=== PATIENT | female | born 1940 | race Caucasian/White ===

== ENCOUNTER 2016-11-18 12:47 | Observation (INO) | payer MEDICARE ==
[2016-11-18 12:52] VITALS: BP 193/100; PULSE 99; RESP 20; TEMP 97.7; O2SAT 96
[2016-11-18 13:00] VITALS: BP 188/95; PULSE 62; RESP 18; O2SAT 98
[2016-11-18] MEDS ORDERED: SODIUM CHLOR 0.9% 1000 ML INJ 1,000 ML IV SCH ×2 (13:12→18:15)
[2016-11-18] MEDS ORDERED: SODIUM CHLORIDE 0.9% FLUSH 10 ML FLUSH IVF PRN (13:15)
--- NOTE | 2016-11-18 13:16 | PD ---
HPI Chief Complaint: gi bleed Time Seen by Provider: 13:15 Travel History International Travel<30 days: No Contact w/Intl Traveler<30days: No Traveled to known affect area: No History of Present Illness HPI 76-year-old female with history of A. fib, COPD, and chronic back pain presents to the emergency department today for evaluation of mario red bloody bowel movements. Patient states these have been happening since Wednesday which is 3 days ago. BMs have been with some brown stool but a lot of blood. She states she stopped taking her Coumadin when she first noticed it. She was at the pain management today where she receives injections for her back and has Percocet prescribed to her when they advised that she come to the emergency department. She states that her abdomen has been more bloated and larger than usual. States it is mildly painful. She does have a history of bowel perforation with colostomy placement in 2013 and then reversal in 2014. No nausea or vomiting. No urinary symptoms. She has no other symptoms to report at this time. PFSH Past Medical History Cancer: Yes (breast cancer) Cardiovascular Problems: Yes (atrial fibrillation) COPD: Yes Social History Alcohol Use: No Tobacco Use: No Substance Use: No Allergies-Medications (Allergen,Severity, Reaction): Coded Allergies: Compazine (Verified Allergy, Intermediate, anxiety, 11/18/16) Penicillin (Verified Allergy, Intermediate, rash, 11/18/16) Uncoded Allergies: nickel (Adverse Reaction, Unknown, 11/18/16) Reported Meds & Prescriptions Reported Meds & Active Scripts Active Reported Nexium (Esomeprazole DR) 40 Mg Capdr 40 Mg PO DAILY Cymbalta DR (Duloxetine HCl) 30 Mg Capdr 30 Mg PO DAILY Oxycodone-Acetaminophen 10-325 mg Tab 1 Tab PO Q6H PRN Colace (Docusate Sodium) 100 Mg Cap 100 Mg PO DIRECTED Cardizem CD 24 HR (Diltiazem CD 24 HR) 180 Mg Caper 180 Mg PO DAILY Coumadin (Warfarin) 5 Mg Tab 5 Mg PO DAILY Cozaar (Losartan Potassium) 100 Mg Tab 100 Mg PO DAILY Review of Systems Except as stated in HPI: all other systems reviewed are Neg Physical Exam Narrative GENERAL: Well-nourished, pleasant, elderly female patient, lying in bed, in no acute distress SKIN: Warm and dry. HEAD: Atraumatic. Normocephalic. EYES: Pupils equal and round. No scleral icterus. No injection or drainage. ENT: No nasal bleeding or discharge. Mucous membranes pink and moist. NECK: Trachea midline. No JVD. CARDIOVASCULAR: Elevated rate and rhythm. No murmur appreciated. RESPIRATORY: No accessory muscle use. Diminished to auscultation. Breath sounds equal bilaterally. GASTROINTESTINAL: Abdomen rotund, soft, tenderness to palpation in the epigastrium, left upper, and right upper quadrants.. Hepatic and splenic margins not palpable. RECTAL EXAM: External hemorrhoid, slight tenderness upon exam. Stool is brown with what appears to be blood in it MUSCULOSKELETAL: No obvious deformities. No clubbing. No cyanosis. No edema. NEUROLOGICAL: Awake and alert. No obvious cranial nerve deficits. Motor grossly within normal limits. Normal speech. PSYCHIATRIC: Appropriate mood and affect; insight and judgment normal. Data Data Last Documented VS Vital Signs Date Time Temp Pulse Resp B/P Pulse Ox O2 Delivery O2 Flow Rate FiO2 11/18/16 13:40 20 11/18/16 13:40 62 151/63 98 Room Air 11/18/16 12:52 97.7 Orders Complete Blood Count With Diff (11/18/16 13:12) Comprehensive Metabolic Panel (11/18/16 13:12) Prothrombin Time / Inr (Pt) (11/18/16 13:12) Act Partial Throm Time (Ptt) (11/18/16 13:12) Urinalysis - C+S If Indicated (11/18/16 13:12) Type And Screen (11/18/16 13:12) Ecg Monitoring (11/18/16 13:12) Iv Access Insert/Monitor (11/18/16 13:12) Oximetry (11/18/16 13:12) Sodium Chlor 0.9% 1000 Ml Inj (Ns 1000 M (11/18/16 13:12) Sodium Chloride 0.9% Flush (Ns Flush) (11/18/16 13:15) Ct Abd/Pel W Iv Contrast(Rout) (11/18/16 ) Electrocardiogram (11/18/16 ) Chest, Single Ap (11/18/16 ) Iohexol 350 Inj (Omnipaque 350 Inj) (11/18/16 16:41) Admit Order (Ed Use Only) (11/18/16 17:10) Place In Observation (11/18/16 ) Vital Signs (Adult) AILEEN.QSHIFT (11/18/16 17:12) Intake + Output AILEEN.QSHIFT (11/18/16 17:12) Diet Npo (11/19/16 Breakfast) Diet Clear Liquid (11/18/16 Dinner) Sodium Chloride 0.9% Flush (Ns Flush) (11/18/16 21:00) Ondansetron Inj (Zofran Inj) (11/18/16 17:15) Pantoprazole Inj (Protonix Inj) (11/19/16 09:00) Hgb & Hct (11/18/16 19:00) Hgb & Hct (11/19/16 01:00) Hgb & Hct (11/19/16 07:00) Hgb & Hct (11/19/16 13:00) Complete Blood Count With Diff (11/19/16 06:00) Basic Metabolic Panel (Bmp) (11/19/16 06:00) Prothrombin Time / Inr (Pt) (11/19/16 06:00) Consult Gastroenterology (11/18/16 ) Diltiazem Cd (Cardizem Cd) (11/19/16 09:00) Duloxetine Dr (Yvette Valencia) (11/19/16 09:00) Losartan (Cozaar) (11/19/16 09:00) Activity Bed Rest With Brp (11/18/16 17:16) Labs Laboratory Tests Test 11/18/16 11/18/16 11/18/16 13:35 13:40 13:45 Urine Color COLORLESS Urine Turbidity CLEAR Urine pH 7.0 Urine Specific [place] 1.002 Urine Protein NEG mg/dL Urine Glucose (UA) NEG mg/dL Urine Ketones NEG mg/dL Urine Occult Blood NEG Urine Nitrite NEG Urine Bilirubin NEG Urine Urobilinogen LESS THAN 2.0 MG/DL Urine Leukocyte Esterase NEG Urine WBC LESS THAN 1 /hpf Microscopic Urinalysis Comment CULT NOT INDICATED Blood Type O POSITIVE Antibody Screen NEGATIVE Blood Bank Comment White Blood Count 6.1 TH/MM3 Red Blood Count 4.56 MIL/MM3 Hemoglobin 11.7 GM/DL Hematocrit 36.2 % Mean Corpuscular Volume 79.4 FL Mean Corpuscular Hemoglobin 25.6 PG Mean Corpuscular Hemoglobin 32.3 % Concent Red Cell Distribution Width 16.1 % Platelet Count 232 TH/MM3 Mean Platelet Volume 8.0 FL Neutrophils (%) (Auto) 70.6 % Lymphocytes (%) (Auto) 20.5 % Monocytes (%) (Auto) 7.4 % Eosinophils (%) (Auto) 0.8 % Basophils (%) (Auto) 0.7 % Neutrophils # (Auto) 4.3 TH/MM3 Lymphocytes # (Auto) 1.3 TH/MM3 Monocytes # (Auto) 0.5 TH/MM3 Eosinophils # (Auto) 0.0 TH/MM3 Basophils # (Auto) 0.0 TH/MM3 CBC Comment DIFF FINAL Differential Comment Prothrombin Time 14.2 SEC Prothromb Time International 1.3 RATIO Ratio Activated Partial 32.7 SEC Thromboplast Time Sodium Level 138 MEQ/L Potassium Level 3.8 MEQ/L Chloride Level 103 MEQ/L Carbon Dioxide Level 26.5 MEQ/L Anion Gap 9 MEQ/L Blood Urea Nitrogen 14 MG/DL Creatinine 0.84 MG/DL Estimat Glomerular Filtration 66 ML/MIN Rate Random Glucose 119 MG/DL Calcium Level 8.8 MG/DL Total Bilirubin 0.6 MG/DL Aspartate Amino Transf 25 U/L (AST/SGOT) Alanine Aminotransferase 48 U/L (ALT/SGPT) Alkaline Phosphatase 133 U/L Total Protein 7.0 GM/DL Albumin 3.4 GM/DL [facility] Medical Decision Making Medical Screen Exam Complete: Yes Emergency Medical Condition: Yes Medical Record Reviewed: Yes Differential Diagnosis Gi bleed vs hemorrhoid vs obstruction vs ileus versus colitis Narrative Course 76 year old female presents to the ED for evaluation of mario red in her bowel movements. Patient has slight tenderness to palpation in the upper quadrants of her abdomen. Otherwise abdomen is soft. CBC and BMP are without acute concern. INR is 1.3. Urinalysis is unremarkable. CT imaging is complete and shows Last Impressions Chest X-Ray 11/18/16 Signed Impressions: Service Date/Time: Friday, November 18, 2016 14:54 - CONCLUSION: 1. Mild cardiomegaly. 2. No acute focal pulmonary infiltrate or pulmonary vascular congestion. 3. Calcified granuloma within the left lung base. 4. Degenerative changes and scoliosis of the thoracolumbar spine. Quinten Bocanegra MD Abdomen/Pelvis CT 11/18/16 0000 Signed Impressions: Service Date/Time: Friday, November 18, 2016 16:15 - CONCLUSION: 1. There is a periumbilical and probable lower abdominal incisional hernia, both of which contain a single loop of nondilated bowel. No bowel obstruction. 2. Hepatic fatty infiltration. Patient is status post cholecystectomy Slava Shah MD Upon review of the CT, I'm able to reduce the periumbilical hernia however when the patient sat up it comes back out. Patient was unaware that she had hernia. I'm unable to palpate the lower abdominal incisional hernia when the patient is lying supine. I have discussed the patient with my attending physician Dr. Lafleur who agrees the patient would benefit from admission for serial H&H and further evaluation of suspected GI bleed. Plan is discussed with the patient. She is in agreement with this plan of care. I discussed the patient with Dr. Garcia. Patient will be admitted observation to the [facility]. Diagnosis Primary Impression: GI bleed Qualified Code: K92.2 - Gastrointestinal hemorrhage, unspecified gastrointestinal hemorrhage type Additional Impression: Abdominal discomfort Admitting Information Admitting Physician Requests: Observation Condition: Stable [place] Nov 18, 2016 13:15
[2016-11-18 13:40] VITALS: BP 151/63; PULSE 62; RESP 18; O2SAT 98
[2016-11-18 14:07] LABS: AUTOMATED NEUTROPHIL # 4.3 TH/MM3 (1.8-7.7); BASOPHIL % 0.7 % (0.0-2.0); EOSINOPHIL % 0.8 % (0.0-4.0); HEMATOCRIT 36.2 % (35.0-46.0); HEMO FLAGS DIFF FINAL; LYMPH % 20.5 % (9.0-44.0); LYMPHOCYTE # 1.3 TH/MM3 (1.0-4.8); MEAN CELL VOLUME 79.4 FL (80.0-100.0); MEAN CORPUSCULAR HEMOGLOBIN 25.6 PG (27.0-34.0); MEAN CORPUSCULAR HGB CONC 32.3 % (32.0-36.0); MONO % 7.4 % (0.0-8.0); NEUT % 70.6 % (16.0-70.0); PLATELET COUNT 232 TH/MM3 (150-450); RED BLOOD COUNT 4.56 MIL/MM3 (4.00-5.30); RED CELL DISTRIBUTION WIDTH 16.1 % (11.6-17.2); WHITE BLOOD COUNT 6.1 TH/MM3 (4.0-11.0)
[2016-11-18 14:08] LABS: BLOOD, URINE NEG (NEG); GLUCOSE,URINE NEG (NEG); KETONE, URINE NEG (NEG); NITRITE,URINE NEG (NEG); URINE COLOR COLORLESS (YELLW/STRAW)
[2016-11-18 14:10] LABS: COMMENT (UR) CULT NOT INDICATED; CULTURE IF INDICATED CULT NOT INDICATED
[2016-11-18 14:18] LABS: APTT (PATIENT) 32.7 SEC (24.3-30.1); INTERNATIONAL NORMALIZED RATIO 1.3 RATIO; PROTHROMBIN TIME - PATIENT 14.2 SEC (9.8-11.6)
[2016-11-18 14:29] LABS: ALT (GPT) 48 U/L (10-53); ANION GAP 9 MEQ/L (5-15); AST (GOT) 25 U/L (15-37); BICARBONATE 26.5 MEQ/L (21.0-32.0); BLOOD UREA NITROGEN 14 MG/DL (7-18); CHLORIDE 103 MEQ/L (98-107); GLOMERULAR FILTRATION RATE 66 ML/MIN (>89); POTASSIUM 3.8 MEQ/L (3.5-5.1); SODIUM (NA) 138 MEQ/L (136-145)
[2016-11-18 14:31] LABS: ALKALINE PHOSPHATASE 133 U/L (45-117); TOTAL BILIRUBIN ADULT 0.6 MG/DL (0.2-1.0)
--- NOTE | 2016-11-18 15:58 | RADRPT ---
EXAM DATE/TIME: 11/18/2016 14:54 [facility] COMPARISON: No previous studies available for comparison. INDICATIONS : Evaluate lung status. Patient being seen in the emergency room for rectal bleeding. MEDICAL HISTORY : Carcinoma, breast. SURGICAL HISTORY : Right breast lumpectomy. ENCOUNTER: Initial ACUITY: 1 day PAIN SCORE: 0/10 LOCATION: Bilateral chest FINDINGS: The heart is minimally prominent. The pulmonary vascular pattern is normal. There is a calcified gra nuloma within the left lung base. There is no acute focal alveolar consolidation. Degenerative lobo es and scoliosis of the thoracolumbar spine are noted. CONCLUSION: 1. Mild cardiomegaly. 2. No acute focal pulmonary infiltrate or pulmonary vascular congestion. 3. Calcified granuloma within the left lung base. 4. Degenerative changes and scoliosis of the thoracolumbar spine. Quinten Bocanegra MD on November 18, 2016 at 15:49 Board Certified Radiologist. This report was verified electronically.
[2016-11-18] MEDS ORDERED: COZA100T PO (16:16)
[2016-11-18] MEDS ORDERED: CARD180C5 PO (16:16)
[2016-11-18] MEDS ORDERED: COUM5TAB PO (16:16)
[2016-11-18] MEDS ORDERED: OXYC1TAB36 PO (16:16)
[2016-11-18] MEDS ORDERED: NEXI40CA PO (16:16)
[2016-11-18] MEDS ORDERED: CYMB30CA PO (16:16)
[2016-11-18] MEDS ORDERED: COLA100C3 PO (16:16)
[2016-11-18] MEDS ORDERED: IOHEXOL 350 MG/ML 10 ML VIAL (for RAD DIAG) IV ONE (16:41)
--- NOTE | 2016-11-18 16:54 | RADRPT ---
EXAM DATE/TIME: 11/18/2016 16:15 [facility] COMPARISON: No previous studies available for comparison. INDICATIONS : Abdomen pain and distention starting wednesday,somenrectal bleeding. IV CONTRAST: 71 cc Omnipaque 350 (iohexol) IV ORAL CONTRAST: Prescribed oral contrast ingested. RADIATION DOSE: 12.55 CTDIvol (mGy) MEDICAL HISTORY : Chronic obstructive pulmonary disease. Carcinoma, breast. SURGICAL HISTORY : Appendectomy. Cholecystectomy.Bowel perforation ENCOUNTER: Initial ACUITY: 4 - 6 days PAIN SCALE: 5/10 LOCATION: Abdomen TECHNIQUE: Volumetric scanning of the abdomen and pelvis was performed. Using automated exposure control and ad justment of the mA and/or kV according to patient size, radiation dose was kept as low as reasonably achievable to obtain optimal diagnostic quality images. FINDINGS: LOWER LUNGS: The visualized lower lungs are clear. LIVER: Homogeneous, but decreased density without lesion. There is no dilation of the biliary tree. Patient is status post cholecystectomy. SPLEEN: Normal size without lesion. PANCREAS: Within normal limits. KIDNEYS: Normal in size and shape. There is no mass, stone or hydronephrosis. ADRENAL GLANDS: Within normal limits. VASCULAR: There is no aortic aneurysm. BOWEL/MESENTERY: The stomach, small bowel, and colon demonstrate no acute abnormality. There is no free intraperitone al air or fluid. ABDOMINAL WALL: Small periumbilical and a lower possibly incisional hernia of the anterior abdominal wall, both of wh ich contain a loop of nondilated bowel. RETROPERITONEUM: There is no lymphadenopathy. BLADDER: No wall thickening or mass. REPRODUCTIVE: Within normal limits. INGUINAL: There is no lymphadenopathy or hernia. MUSCULOSKELETAL: Within normal limits for patient age. Mild levoscoliosis of the thoracolumbar spine. CONCLUSION: 1. There is a periumbilical and probable lower abdominal incisional hernia, both of which contain a s cee loop of nondilated bowel. No bowel obstruction. 2. Hepatic fatty infiltration. Patient is status post cholecystectomy Slava Shah MD on November 18, 2016 at 16:48 Board Certified Radiologist. This report was verified electronically.
[2016-11-18] MEDS ORDERED: ONDANSETRON HCL 4 MG/2 ML VIAL IV PRN (17:15)
--- NOTE | 2016-11-18 17:43 | HHI.HP ---
HPI Service [facility] Primary Care Physician Non-Staff Admission Diagnosis GI bleed; AFIB (stopped coumadin 3 days ago) Diagnoses: Chief Complaint: rectal bleeding Travel History International Travel<30 Days: No Contact w/Intl Traveler <30 Da: No Traveled to Known Affected Are: No History of Present Illness 76-year-old female with history of atrial fibrillation on Coumadin, COPD, chronic back pain, hypertension, GERD, presents with a 3 day history of bright red rectal bleeding since Wednesday11/15/16. The patient reports this past Wednesday she had an episode of nausea and vomiting, then later that evening she went to the bathroom and noticed bright red blood in the toilet and when she wiped. She stopped taking her Coumadin immediately, last dose was on Wednesday. Then on Wednesday , she still didn't feel well, had decreased appetite. Denies abdominal pain but does report feeling more bloated than usual. Stools have been loose to formed but brown, mixed with a significant amount of bright red blood. She saw her physician Dr. Juan Lopez today who recommended she come to the ER for further evaluation. She denies any other medical complaints including no fevers/chills , lightheadedness, dizziness, chest pains, palpitations, shortness of breath, or urinary complaints. She does have a history of bowel perforation with colostomy placement in 2013 and then reversal in 2014. Review of Systems Except as stated in HPI: all other systems reviewed are Neg Past Family Social History Past Medical History Hypertension Atrial Fibrillation on Coumadin Perforated Colon Right breast cancer GERD Chronic back pain COPD Past Surgical History Colostomy February 2014 Colostomy reversal October 2014 Colonoscopy, last 1 year ago Right breast lumpectomy Aug 2014 Cholecystectomy Appendectomy Bilateral total knee arthroplasty Reported Medications Nexium (Esomeprazole DR) 40 Mg Capdr 40 Mg PO DAILY Cymbalta DR (Duloxetine HCl) 30 Mg Capdr 30 Mg PO DAILY Oxycodone-Acetaminophen 10-325 mg Tab 1 Tab PO Q6H PRN Colace (Docusate Sodium) 100 Mg Cap 100 Mg PO DIRECTED Cardizem CD 24 HR (Diltiazem CD 24 HR) 180 Mg Caper 180 Mg PO DAILY Coumadin (Warfarin) 5 Mg Tab 5 Mg PO DAILY Cozaar (Losartan Potassium) 100 Mg Tab 100 Mg PO DAILY Allergies: Coded Allergies: Compazine (Verified Allergy, Intermediate, anxiety, 11/18/16) Penicillin (Verified Allergy, Intermediate, rash, 11/18/16) Uncoded Allergies: nickel (Adverse Reaction, Unknown, 11/18/16) Active Ordered Medications Current Medications Medications (Trade) Dose Ordered Sig/Chan Route Start Time Stop Time Status Last Admin (NS Flush) 2 ml UNSCH PRN IVF 11/18/16 13:15 (NS Flush) 2 ml BID IV FLUSH 11/18/16 21:00 UNV (Zofran Inj) 4 mg Q6H PRN IV 11/18/16 17:15 UNV (Protonix Inj) 40 mg DAILY IV 11/19/16 09:00 UNV (Cardizem Cd) 180 mg DAILY PO 11/19/16 09:00 UNV (Cymbalta Dr) 30 mg DAILY PO 11/19/16 09:00 UNV (Cozaar) 100 mg DAILY PO 11/19/16 09:00 UNV Family History Mother with breast cancer, hypertension Father with prostate cancer, type 2 DM Social History Smoked tobacco for many years, quit for 20years, then started back in 2004, now quit again 3 months ago Very occasional alcohol use, socially Denies illicit drug use Physical Exam Vital Signs Vital Signs Date Time Temp Pulse Resp B/P Pulse Ox O2 Delivery O2 Flow Rate FiO2 11/18/16 13:40 20 11/18/16 13:40 62 18 151/63 98 Room Air 11/18/16 13:00 62 18 188/95 98 11/18/16 12:52 97.7 99 20 193/100 96 Room Air Physical Exam GENERAL: Well-nourished, well-developed pleasant elderly male patient in [facility]. SKIN: Warm and dry. No rash. HEAD: Normocephalic. Atraumatic. EYES: Pupils equal and round. No scleral icterus. No injection or drainage. ENT: No nasal bleeding or discharge. Mucous membranes pink and moist. NECK: Supple. Trachea midline. CARDIOVASCULAR: Regular rate and rhythm. S1, S2 noted. No murmur appreciated. RESPIRATORY: No accessory muscle use. Faint left basilar crackles, otherwise clear to auscultation. Breath sounds equal bilaterally. GASTROINTESTINAL: Abdomen soft, non-tender, nondistended. Normoactive bowel sounds x4. MUSCULOSKELETAL: No obvious deformities. Extremities without clubbing, cyanosis , or edema. NEUROLOGICAL: Awake and alert. No obvious cranial nerve deficits. Motor grossly within normal limits. Moves all extremities spontaneously. Normal speech. PSYCHIATRIC: Appropriate mood and affect; insight and judgment normal. Laboratory Laboratory Tests Test 11/18/16 11/18/16 11/18/16 13:35 13:40 13:45 Urine Color COLORLESS Urine Turbidity CLEAR Urine pH 7.0 Urine Specific [place] 1.002 Urine Protein NEG Urine Glucose (UA) NEG Urine Ketones NEG Urine Occult Blood NEG Urine Nitrite NEG Urine Bilirubin NEG Urine Urobilinogen LESS THAN 2.0 Urine Leukocyte Esterase NEG Urine WBC LESS THAN 1 Microscopic Urinalysis Comment CULT NOT INDICATED Blood Type O POSITIVE Antibody Screen NEGATIVE Blood Bank Comment White Blood Count 6.1 Red Blood Count 4.56 Hemoglobin 11.7 Hematocrit 36.2 Mean Corpuscular Volume 79.4 Mean Corpuscular Hemoglobin 25.6 Mean Corpuscular Hemoglobin 32.3 Concent Red Cell Distribution Width 16.1 Platelet Count 232 Mean Platelet Volume 8.0 Neutrophils (%) (Auto) 70.6 Lymphocytes (%) (Auto) 20.5 Monocytes (%) (Auto) 7.4 Eosinophils (%) (Auto) 0.8 Basophils (%) (Auto) 0.7 Neutrophils # (Auto) 4.3 Lymphocytes # (Auto) 1.3 Monocytes # (Auto) 0.5 Eosinophils # (Auto) 0.0 Basophils # (Auto) 0.0 CBC Comment DIFF FINAL Differential Comment Prothrombin Time 14.2 Prothromb Time International 1.3 Ratio Activated Partial 32.7 Thromboplast Time Sodium Level 138 Potassium Level 3.8 Chloride Level 103 Carbon Dioxide Level 26.5 Anion Gap 9 Blood Urea Nitrogen 14 Creatinine 0.84 Estimat Glomerular Filtration 66 Rate Random Glucose 119 Calcium Level 8.8 Total Bilirubin 0.6 Aspartate Amino Transf 25 (AST/SGOT) Alanine Aminotransferase 48 (ALT/SGPT) Alkaline Phosphatase 133 Total Protein 7.0 Albumin 3.4 Result Diagram: 11/18/16 1345 11/18/16 1345 Imaging Last Impressions Chest X-Ray 11/18/16 0000 Signed Impressions: Service Date/Time: Friday, November 18, 2016 14:54 - CONCLUSION: 1. Mild cardiomegaly. 2. No acute focal pulmonary infiltrate or pulmonary vascular congestion. 3. Calcified granuloma within the left lung base. 4. Degenerative changes and scoliosis of the thoracolumbar spine. Quinten Bocanegra MD Abdomen/Pelvis CT 11/18/16 0000 Signed Impressions: Service Date/Time: Friday, November 18, 2016 16:15 - CONCLUSION: 1. There is a periumbilical and probable lower abdominal incisional hernia, both of which contain a single loop of nondilated bowel. No bowel obstruction. 2. Hepatic fatty infiltration. Patient is status post cholecystectomy Slava Shah MD Assessment and Plan Problem List: (1) GI bleed ICD Code: K92.2 Status: Acute (2) Anticoagulated on Coumadin ICD Code: Z51.81 Status: Acute Assessment and Plan 76-year-old female with history of atrial fibrillation on Coumadin, COPD, chronic back pain, hypertension, GERD, presents with a 3 day history of bright red rectal bleeding since Wednesday11/15/16. GI Bleeding/Hematochezia: last dose of Coumadin 11/15, INR 1.3. CT abd/pelvis images reviewed by me, shows periumbilical and probable lower abdominal incisional hernia which contain single loop of nondilated bowel; no bowel obstruction, hepatic fatty infiltration. Hgb currently stable at 11.7. -Hold patient's Coumadin -Continue to monitor serial H&H q6h -Monitor Is&Os -Start IV Protonix, gentle IVF -Consult gastroenterology -Clear liquid diet for now, NPO after midnight Atrial Fibrillation: Chronic, rate controlled -Coumadin on hold, INR 1.3 -EKG reviewed by me, shows NSR -Continue patient's Cardizem Hypertension: chronic -continue patient's Cozaar Chronic Back Pain: -continue patient's Percocet COPD: chronic, not in exacerbation -duonebs prn DVT Prophylaxis: teds/SCDs, avoid chemical prophylaxis with GI bleeding Written by Radha Gold, acting as scribe for Dr. Garcia on 11/18/16 at 18:02. All or portions of this note were transcribed by scribe VICTORIA Monroy. I , Dr. Josh Garcia personally performed the history, physical exam, and medical decision making; and confirmed the accuracy of the information in the transcribed note. Authenticated by Dr. Josh Garcia on 11/18/16 at 23:59. Discussed Condition With Patient, ER [employer], [employer] Problem Qualifiers (1) GI bleed: Qualified Code: K92.2 - Gastrointestinal hemorrhage, unspecified gastrointestinal hemorrhage type Radha Gold PA-C Nov 18, 2016 17:43 Aziza Garcia DO Nov 18, 2016 23:59
[2016-11-18] MEDS ORDERED: oxyCODONE/ACETAMINOPHEN 5 MG/325 MG TAB PO PRN (18:15)
[2016-11-18] MEDS ORDERED: MORPHINE SULFATE 4 MG/ML INJ IV PRN (18:15)
[2016-11-18] MEDS ORDERED: ACETAMINOPHEN 325 MG TAB PO PRN (18:15)
[2016-11-18] MEDS ORDERED: RESP: ALBUTEROL 2.5 MG/IPRATROPIUM 0.5 MG NEB (PRN) NEB (18:15)
[2016-11-18 18:54] VITALS: BP 150/70; PULSE 70; RESP 18; O2SAT 98
[2016-11-18 19:30] VITALS: BP 175/61; PULSE 68; RESP 18; O2SAT 96
[2016-11-18 19:55] LABS: HEMATOCRIT 24.7 % (35.0-46.0); REVIEW FLAG FINAL
[2016-11-18] MEDS: SODIUM CHLORIDE 0.9% FLUSH 10 ML FLUSH IV FLUSH SCH (20:50)
[2016-11-18 23:42] VITALS: BP 144/65; PULSE 59; RESP 18; TEMP 97.8; O2SAT 99
[2016-11-19 01:56] LABS: HEMATOCRIT 31.4 % (35.0-46.0); REVIEW FLAG FINAL
[2016-11-19 04:08] VITALS: BP 133/66; PULSE 62; RESP 18; TEMP 98.8; O2SAT 93
[2016-11-19 07:22] VITALS: BP 100/60; PULSE 65; RESP 18; TEMP 97.6; O2SAT 93
[2016-11-19 08:01] LABS: AUTOMATED NEUTROPHIL # 3.1 TH/MM3 (1.8-7.7); BASOPHIL % 0.8 % (0.0-2.0); EOSINOPHIL # 0.1 TH/MM3 (0-0.4); EOSINOPHIL % 2.1 % (0.0-4.0); HEMATOCRIT 33.4 % (35.0-46.0); HEMO FLAGS DIFF FINAL; LYMPH % 32.7 % (9.0-44.0); LYMPHOCYTE # 1.9 TH/MM3 (1.0-4.8); MEAN CELL VOLUME 78.8 FL (80.0-100.0); MEAN CORPUSCULAR HEMOGLOBIN 26.5 PG (27.0-34.0); MEAN CORPUSCULAR HGB CONC 33.6 % (32.0-36.0); MONO % 9.5 % (0.0-8.0); NEUT % 54.9 % (16.0-70.0); PLATELET COUNT 249 TH/MM3 (150-450); RED BLOOD COUNT 4.23 MIL/MM3 (4.00-5.30); RED CELL DISTRIBUTION WIDTH 16.1 % (11.6-17.2); WHITE BLOOD COUNT 5.7 TH/MM3 (4.0-11.0)
[2016-11-19 08:03] LABS: HEMATOCRIT 34.2 % (35.0-46.0); REVIEW FLAG FINAL
[2016-11-19 08:09] LABS: INTERNATIONAL NORMALIZED RATIO 1.2 RATIO; PROTHROMBIN TIME - PATIENT 13.2 SEC (9.8-11.6)
[2016-11-19 08:19] LABS: BICARBONATE 27.4 MEQ/L (21.0-32.0); POTASSIUM 3.9 MEQ/L (3.5-5.1)
--- NOTE | 2016-11-19 08:47 | HHI.PR ---
Subjective Remarks Follow up for GI Bleed. The patient denies any further bleeding overnight, has not had a BM. Denies any abdominal pain, nausea, or vomiting. Awaiting GI evaluation. She is hungry and wants to eat. She feels slightly lightheaded because she is hungry. She has no other medical complaints at this time. The patient believes she had a normal colonoscopy 1 year ago. Objective Vitals Vital Signs Date Time Temp Pulse Resp B/P Pulse Ox O2 Delivery O2 Flow Rate FiO2 11/19/16 07:22 97.6 65 18 100/60 93 11/19/16 04:08 98.8 62 18 133/66 93 11/18/16 23:42 97.8 59 18 144/65 99 11/18/16 19:30 68 18 175/61 96 Room Air 11/18/16 18:54 70 18 150/70 98 Room Air 11/18/16 13:40 20 11/18/16 13:40 62 18 151/63 98 Room Air 11/18/16 13:00 62 18 188/95 98 11/18/16 12:52 97.7 99 20 193/100 96 Room Air Result Diagram: 11/19/16 0730 11/19/16 0730 Imaging Last Impressions Chest X-Ray 11/18/16 0000 Signed Impressions: Service Date/Time: Friday, November 18, 2016 14:54 - CONCLUSION: 1. Mild cardiomegaly. 2. No acute focal pulmonary infiltrate or pulmonary vascular congestion. 3. Calcified granuloma within the left lung base. 4. Degenerative changes and scoliosis of the thoracolumbar spine. Quinten Bocanegra MD Abdomen/Pelvis CT 11/18/16 0000 Signed Impressions: Service Date/Time: Friday, November 18, 2016 16:15 - CONCLUSION: 1. There is a periumbilical and probable lower abdominal incisional hernia, both of which contain a single loop of nondilated bowel. No bowel obstruction. 2. Hepatic fatty infiltration. Patient is status post cholecystectomy Slava Shah MD Objective Remarks GENERAL: Well-developed, well-nourished pleasant female patient in NAD. SKIN: Warm and dry. HEENT: Atraumatic. Normocephalic. Pupils equal and round. No scleral icterus. No injection or drainage. Mucous membranes pink and moist. NECK: Trachea midline. CARDIOVASCULAR: Regular rate and rhythm. No murmur appreciated. RESPIRATORY: No accessory muscle use. Clear to auscultation. Breath sounds equal bilaterally. GASTROINTESTINAL: Abdomen soft, non-tender, nondistended. Normoactive bowel sounds x4. MUSCULOSKELETAL: Extremities without clubbing, cyanosis, or edema. No obvious deformities. NEUROLOGICAL: Awake and alert. No obvious cranial nerve deficits. Motor grossly within normal limits. Normal speech. PSYCHIATRIC: Appropriate mood and affect; insight and judgment normal. Medications and IVs Current Medications Medications (Trade) Dose Ordered Sig/Chan Route Start Time Stop Time Status Last Admin (NS Flush) 2 ml UNSCH PRN IVF 11/18/16 13:15 (NS Flush) 2 ml BID IV FLUSH 11/18/16 21:00 (Zofran Inj) 4 mg Q6H PRN IV 11/18/16 17:15 (Protonix Inj) 40 mg DAILY IV 11/19/16 09:00 (Cardizem Cd) 180 mg DAILY PO 11/19/16 09:00 (Cymbalta Dr) 30 mg DAILY PO 11/19/16 09:00 (Cozaar) 100 mg DAILY PO 11/19/16 09:00 (Tylenol) 650 mg Q6H PRN PO 11/18/16 18:15 (Percocet 5-325 Mg) 1 tab Q6H PRN PO 11/18/16 18:15 (Percocet 10-325 Mg) 1 tab Q6H PRN PO 11/18/16 18:15 (Morphine Inj) 2 mg Q4H PRN IV 11/18/16 18:15 Urinary Catheter: No Vascular Central Line Catheter: No A/P Problem List: (1) GI bleed ICD Code: K92.2 Status: Acute (2) Anticoagulated on Coumadin ICD Code: Z51.81 Status: Acute Assessment and Plan 76-year-old female with history of atrial fibrillation on Coumadin, COPD, chronic back pain, hypertension, GERD, presents with a 3 day history of bright red rectal bleeding since Wednesday11/15/16. GI Bleeding/Hematochezia: last dose of Coumadin 11/15, INR 1.3. CT abd/pelvis images reviewed by me, shows periumbilical and probable lower abdominal incisional hernia which contain single loop of nondilated bowel; no bowel obstruction, hepatic fatty infiltration. Hgb currently stable at 11.7. -Hold patient's Coumadin -Continue to monitor serial H&H q6h -Monitor Is&Os -Started IV Protonix, gentle IVF -Consult gastroenterology -Clear liquid diet today, NPO after midnight -Plan for colonoscopy tomorrow Atrial Fibrillation: Chronic, rate controlled -Coumadin on hold, INR 1.2 -EKG reviewed by me, shows NSR -Continue patient's Cardizem Hypertension: chronic -continue patient's Cozaar Chronic Back Pain: -continue patient's Percocet COPD: chronic, not in exacerbation -duonebs prn DVT Prophylaxis: teds/SCDs, avoid chemical prophylaxis with GI bleeding Written by Radha Gold, acting as scribe for Dr. Alicia on 11/19/16 at 08:44. All or portions of this note were transcribed by scribe Radha Gold. I, Dr. Jennifer Alicia personally performed the history, physical exam, and medical decision making; and confirmed the accuracy of the information in the transcribed note. Authenticated by Dr. eJnnifer Alicia on 11/19/16 at 14:20. Problem Qualifiers (1) GI bleed: Qualified Code: K92.2 - Gastrointestinal hemorrhage, unspecified gastrointestinal hemorrhage type Radha Gold PA-C Nov 19, 2016 08:47 Jennifer Alicia MD Nov 19, 2016 14:21
[2016-11-19] MEDS: SODIUM CHLORIDE 0.9% FLUSH 10 ML FLUSH IV FLUSH SCH ×2 (09:00→20:23)
[2016-11-19] MEDS: PANTOPRAZOLE SODIUM 40 MG VIAL IV SCH (09:02)
[2016-11-19] MEDS: SODIUM CHLOR 0.9% 1000 ML INJ 1,000 ML IV SCH ×2 (09:47→20:22)
[2016-11-19] MEDS: LOSARTAN 50 MG TAB PO SCH (09:48)
[2016-11-19] MEDS: DULoxetine HCl DR 30 MG CAP PO SCH (09:48)
[2016-11-19] MEDS: DILTIAZEM-CD 180 MG CAP ER PO SCH (09:48)
--- NOTE | 2016-11-19 10:46 | PD.CONS ---
HPI History of Present Illness This is a 76 year old female who takes Coumadin for atrial fibrillation. She reports that she started having nausea and vomiting Wednesday night. This was bilious and she denies any hematemesis. She did not have a fever, but does endorse some chills. She stopped her coumadin. The next day she developed BRPBR. On Wednesday, she was able to eat some clear liquids, but developed some bloating and mild abdominal discomfort afterwards. She denies any actual pain. Yesterday, she had an appointment with her pain management clinic, where her doctor suggested that she come to the ER for further evaluation. She denies any sick contacts. She does have a long hx of constipation that is aggravated by her percocet use and she takes colace and miralax for. She does get heartburn/ reflux and takes Nexium for this- states it is well controlled. No weight loss. In February 2014, she had a colon resection with colostomy for a perforated colon from diverticulitis. This was then reversed in October of 2014. She believes she may have had a colonoscopy after this, but is not sure. She has not taken her coumadin since Wednesday. No family hx of gastric, esophageal, or colon cancer. No bleeding since Wednesday. (Jasmine Bauer) PFSH Past Medical History Hypertension Atrial Fibrillation on Coumadin Perforated Colon Right breast cancer GERD Chronic back pain COPD Hx diverticulitis Past Surgical History Colostomy February 2014 Colostomy reversal October 2014 Colonoscopy, last 1 year ago Right breast lumpectomy Aug 2014 Cholecystectomy Appendectomy Bilateral total knee arthroplasty (Jasmine Bauer) Coded Allergies: Compazine (Verified Allergy, Intermediate, anxiety, 11/18/16) Penicillin (Verified Allergy, Intermediate, rash, 11/18/16) Uncoded Allergies: nickel (Adverse Reaction, Unknown, 11/18/16) Medications Allergies Coded Allergies Type Severity Reaction Last Updated Verified Compazine Allergy Intermediate anxiety 11/18/16 Yes Penicillin Allergy Intermediate rash 11/18/16 Yes Uncoded Allergies Type Severity Reaction Last Updated Verified nickel Adverse Reaction Unknown 11/18/16 Active Scripts Medications Dose Route/Sig Days Date Category Nexium (Esomeprazole DR) 40 Mg Capdr 40 Mg PO DAILY 11/18/[address] (Duloxetine HCl) 30 Mg Capdr 30 Mg PO DAILY 11/18/16 Reported Oxycodone-Acetaminophen 10-325 mg Tab 1 Tab PO Q6H PRN 11/18/16 Reported Colace (Docusate Sodium) 100 Mg Cap 100 Mg PO DIRECTED 11/18/16 Reported Cardizem CD 24 HR (Diltiazem CD 24 HR) 180 Mg Caper 180 Mg PO DAILY 11/18/16 Reported Coumadin (Warfarin) 5 Mg Tab 5 Mg PO DAILY 11/18/16 Reported Cozaar (Losartan Potassium) 100 Mg Tab 100 Mg PO DAILY 11/18/16 Reported Family History Mother with breast cancer, hypertension Father with prostate cancer, type 2 DM Social History Smoked tobacco for many years, quit for 20years, then started back in 2004, now quit again 3 months ago Very occasional alcohol use, socially Denies illicit drug use (Jasmine Bauer) Review of Systems Constitutional: COMPLAINS OF: Fatigue, Chills, DENIES: Fever, Weight loss Respiratory: DENIES: Cough Cardiovascular: DENIES: Chest pain Gastrointestinal: COMPLAINS OF: Bloody stools, Constipation, Nausea, Vomiting, Swelling of Abdomen, Heartburn, DENIES: Abdominal pain, Black stools, Diarrhea Musculoskeletal: COMPLAINS OF: Joint pain, Back pain Integumentary: DENIES: Abnormal pigmentation Hematologic/lymphatic: DENIES: Bruising Neurologic: DENIES: Headache Psychiatric: DENIES: Confusion (Jasmine Bauer) GI Exam Vitals I&O Vital Signs Date Time Temp Pulse Resp B/P Pulse Ox O2 Delivery O2 Flow Rate FiO2 11/19/16 07:22 97.6 65 18 100/60 93 11/19/16 04:08 98.8 62 18 133/66 93 11/18/16 23:42 97.8 59 18 144/65 99 11/18/16 19:30 68 18 175/61 96 Room Air 11/18/16 18:54 70 18 150/70 98 Room Air 11/18/16 13:40 20 11/18/16 13:40 62 18 151/63 98 Room Air 11/18/16 13:00 62 18 188/95 98 11/18/16 12:52 97.7 99 20 193/100 96 Room Air Imaging Last Impressions Chest X-Ray 11/18/16 0000 Signed Impressions: Service Date/Time: Friday, November 18, 2016 14:54 - CONCLUSION: 1. Mild cardiomegaly. 2. No acute focal pulmonary infiltrate or pulmonary vascular congestion. 3. Calcified granuloma within the left lung base. 4. Degenerative changes and scoliosis of the thoracolumbar spine. Quinten Bocanegra MD Abdomen/Pelvis CT 11/18/16 0000 Signed Impressions: Service Date/Time: Friday, November 18, 2016 16:15 - CONCLUSION: 1. There is a periumbilical and probable lower abdominal incisional hernia, both of which contain a single loop of nondilated bowel. No bowel obstruction. 2. Hepatic fatty infiltration. Patient is status post cholecystectomy Slava Shah MD Laboratory Test 11/18/16 11/18/16 11/18/16 11/18/16 13:35 13:40 13:45 19:25 Urine Color COLORLESS Urine Turbidity CLEAR Urine pH 7.0 Urine Specific [place] 1.002 Urine Protein NEG mg/dL Urine Glucose (UA) NEG mg/dL Urine Ketones NEG mg/dL Urine Occult Blood NEG Urine Nitrite NEG Urine Bilirubin NEG Urine Urobilinogen LESS THAN 2.0 MG/DL Urine Leukocyte Esterase NEG Urine WBC LESS THAN 1 /hpf Microscopic Urinalysis Comment CULT NOT INDICATED Blood Type O POSITIVE Antibody Screen NEGATIVE Blood Bank Comment White Blood Count 6.1 TH/MM3 Red Blood Count 4.56 MIL/MM3 Hemoglobin 11.7 GM/DL 8.1 GM/DL Hematocrit 36.2 % 24.7 % Mean Corpuscular Volume 79.4 FL Mean Corpuscular Hemoglobin 25.6 PG Mean Corpuscular Hemoglobin 32.3 % Concent Red Cell Distribution Width 16.1 % Platelet Count 232 TH/MM3 Mean Platelet Volume 8.0 FL Neutrophils (%) (Auto) 70.6 % Lymphocytes (%) (Auto) 20.5 % Monocytes (%) (Auto) 7.4 % Eosinophils (%) (Auto) 0.8 % Basophils (%) (Auto) 0.7 % Neutrophils # (Auto) 4.3 TH/MM3 Lymphocytes # (Auto) 1.3 TH/MM3 Monocytes # (Auto) 0.5 TH/MM3 Eosinophils # (Auto) 0.0 TH/MM3 Basophils # (Auto) 0.0 TH/MM3 CBC Comment DIFF FINAL Differential Comment Prothrombin Time 14.2 SEC Prothromb Time International 1.3 RATIO Ratio Activated Partial 32.7 SEC Thromboplast Time Sodium Level 138 MEQ/L Potassium Level 3.8 MEQ/L Chloride Level 103 MEQ/L Carbon Dioxide Level 26.5 MEQ/L Anion Gap 9 MEQ/L Blood Urea Nitrogen 14 MG/DL Creatinine 0.84 MG/DL Estimat Glomerular Filtration 66 ML/MIN Rate Random Glucose 119 MG/DL Calcium Level 8.8 MG/DL Total Bilirubin 0.6 MG/DL Aspartate Amino Transf 25 U/L (AST/SGOT) Alanine Aminotransferase 48 U/L (ALT/SGPT) Alkaline Phosphatase 133 U/L Total Protein 7.0 GM/DL Albumin 3.4 GM/DL Test 11/19/16 11/19/16 01:50 07:30 Hemoglobin 10.4 GM/DL 11.2 GM/DL Hematocrit 31.4 % 34.2 % White Blood Count 5.7 TH/MM3 Red Blood Count 4.23 MIL/MM3 Mean Corpuscular Volume 78.8 FL Mean Corpuscular Hemoglobin 26.5 PG Mean Corpuscular Hemoglobin 33.6 % Concent Red Cell Distribution Width 16.1 % Platelet Count 249 TH/MM3 Mean Platelet Volume 7.7 FL Neutrophils (%) (Auto) 54.9 % Lymphocytes (%) (Auto) 32.7 % Monocytes (%) (Auto) 9.5 % Eosinophils (%) (Auto) 2.1 % Basophils (%) (Auto) 0.8 % Neutrophils # (Auto) 3.1 TH/MM3 Lymphocytes # (Auto) 1.9 TH/MM3 Monocytes # (Auto) 0.5 TH/MM3 Eosinophils # (Auto) 0.1 TH/MM3 Basophils # (Auto) 0.0 TH/MM3 CBC Comment DIFF FINAL Differential Comment Prothrombin Time 13.2 SEC Prothromb Time International 1.2 RATIO Ratio Sodium Level 143 MEQ/L Potassium Level 3.9 MEQ/L Chloride Level 108 MEQ/L Carbon Dioxide Level 27.4 MEQ/L Anion Gap 8 MEQ/L Blood Urea Nitrogen 8 MG/DL Creatinine 0.73 MG/DL Estimat Glomerular Filtration 78 ML/MIN Rate Random Glucose 92 MG/DL Calcium Level 9.5 MG/DL Physical Examination HEENT: Normocephalic; atraumatic; no jaundice. CHEST: CTA CARDIAC: Irregular ABDOMEN: Soft, nondistended, mild LLQ tenderness; no hepatosplenomegaly; bowel sounds are present in all four quadrants. EXTREMITIES: No clubbing, cyanosis, or edema. SKIN: Normal; no rash; no jaundice. [employer]: No focal deficits; alert and oriented times three. (Jasmine Bauer) Assessment and Plan Plan ASSESSMENT: - BRBPR. 3 day hx of BRPBR. She is on coumadin for afib, but has held since Wednesday. She does have chronic constipation. Hx of colon resection with colostomy and later reversal secondary to perforated colon secondary to diverticulitis. - N/V, Bloating. Improved. Abdomen/Pelvis CT (11/18/16)----> 1. There is a periumbilical and probable lower abdominal incisional hernia, both of which contain a single loop of nondilated bowel. No bowel obstruction. 2. Hepatic fatty infiltration. Patient is status post cholecystectomy - GERD. PPI. - Atrial fibrillation. On coumadin. Pt has not had since Wednesday. - COPD, Chronic back pain, HTN, per primary PLAN: - Plan for egd/colonoscopy - Obtain consents - Clear liquids - NPO after MN - Golytely prep - Monitor HH - Transfuse as necessary - Supportive care - Further recommendations to follow based on results of above - Pt seen and examined by Dr. Banda and myself and this note is written on her behalf (Jasmine Bauer) Physician Comments seen, examined agree with above (Madison Banda MD) Jasmine Bauer Nov 19, 2016 10:46 Madison Banda MD Nov 19, 2016 17:20
[2016-11-19] MEDS: oxyCODONE/ACETAMINOPHEN 10 MG/325 MG TAB PO PRN ×2 (11:39→18:48)
[2016-11-19 11:56] VITALS: BP 152/88; PULSE 78; RESP 20; TEMP 97.8; O2SAT 93
[2016-11-19 14:01] LABS: HEMATOCRIT 34.3 % (35.0-46.0); REVIEW FLAG FINAL
[2016-11-19 15:43] VITALS: BP 138/69; PULSE 61; RESP 20; TEMP 98; O2SAT 92
[2016-11-19] MEDS ORDERED: PEG (High)/E-LYTE SOLN 4000 ML BTL PO ONE ×3 (16:00→18:45)
[2016-11-19 19:21] VITALS: BP 163/78; PULSE 60; RESP 19; TEMP 98.2; O2SAT 94
[2016-11-19 23:58] VITALS: BP 173/80; PULSE 59; RESP 19; TEMP 98; O2SAT 94
[2016-11-20 03:24] VITALS: BP 132/80; PULSE 90; RESP 19; TEMP 98; O2SAT 93
[2016-11-20] MEDS: oxyCODONE/ACETAMINOPHEN 10 MG/325 MG TAB PO PRN (03:33)
--- NOTE | 2016-11-20 07:24 | EKG ---
Date Performed: 11/18/2016 Time Performed: 15:54:12 PTAGE: 76 years EKG: Sinus rhythm WITH OCCASIONAL SUPRAVENTRICULAR PREMATURE COMPLEXES POSSIBLE RIGHT VENTRICULAR CONDUCTION DELAY MOD ERATE VOLTAGE CRITERIA FOR LVH, CONSIDER NORMAL VARIANT INFERIOR MYOCARDIAL INFARCTION ABNORMAL ECG NO PREVIOUS TRACING DOCTOR: Jason Velásquez Interpretating Date/Time 11/20/2016 07:22:39
[2016-11-20 08:01] LABS: AUTOMATED NEUTROPHIL # 4.1 TH/MM3 (1.8-7.7); BASOPHIL # 0.1 TH/MM3 (0-0.2); EOSINOPHIL # 0.1 TH/MM3 (0-0.4); EOSINOPHIL % 1.4 % (0.0-4.0); HEMATOCRIT 34.9 % (35.0-46.0); HEMO FLAGS DIFF FINAL; LYMPH % 28.4 % (9.0-44.0); LYMPHOCYTE # 1.9 TH/MM3 (1.0-4.8); MEAN CELL VOLUME 78.1 FL (80.0-100.0); MEAN CORPUSCULAR HEMOGLOBIN 26.4 PG (27.0-34.0); MEAN CORPUSCULAR HGB CONC 33.8 % (32.0-36.0); MONO % 8.6 % (0.0-8.0); NEUT % 60.6 % (16.0-70.0); PLATELET COUNT 272 TH/MM3 (150-450); RED BLOOD COUNT 4.47 MIL/MM3 (4.00-5.30); RED CELL DISTRIBUTION WIDTH 16.2 % (11.6-17.2); WHITE BLOOD COUNT 6.8 TH/MM3 (4.0-11.0)
[2016-11-20 08:12] LABS: INTERNATIONAL NORMALIZED RATIO 1.2 RATIO; PROTHROMBIN TIME - PATIENT 12.8 SEC (9.8-11.6)
[2016-11-20 08:15] VITALS: BP 132/80; PULSE 90; RESP 19; TEMP 98; O2SAT 93
[2016-11-20 08:18] LABS: BICARBONATE 27.4 MEQ/L (21.0-32.0); POTASSIUM 3.3 MEQ/L (3.5-5.1)
[2016-11-20] MEDS ORDERED: PROPOFOL 200 MG/20 ML AMP IV ONE (08:59)
[2016-11-20] MEDS: SODIUM CHLORIDE 0.9% FLUSH 10 ML FLUSH IV FLUSH SCH (09:00)
--- NOTE | 2016-11-20 09:37 | GIPROC ---
[facility] [address] [facility]. [facility], [address] COLONOSCOPY PROCEDURE REPORT EXAM DATE: 11/20/2016 PATIENT NAME: Chikis Jacinto MR #: [id number] BIRTHDATE: 1940 ENDOSCOPIST: Madison Banda MD ORDER #: [id number] PROJECT BUILDER: Rommel Granado and Artemio Larsen STATUS: inpatient INDICATIONS: The patient is a 76 yr old female here for a colonoscopy due to gi bleeding PROCEDURE PERFORMED: Colonoscopy, diagnostic MEDICATIONS: None and Per Anesthesia. PREP QUALITY: fair PREP TYPE:GoLytely ESTIMATED BLOOD LOSS: None CONSENT: The patient understands the risks and benefits of the procedure and understands that these risks include, but are not limited to: sedation, allergic reaction, infection, perforation and/or bleeding. Alternative means of evaluation and treatment include, among others: physical exam, x-rays, and/or surgical intervention. The patient elects to proceed with this endoscopic procedure. medical equipment was checked for proper function. Hand hygiene and appropriate measures for infection prevention was taken. After the risks, benefits and alternatives of the procedure were thoroughly explained, Informed consent was verified, confirmed and timeout was successfully executed by the treatment team. A digital exam revealed external hemorrhoids The Pentax [id number] and [id number] endoscope was introduced through the anus and advanced to the cecum, which was identified by both the appendix and ileocecal valve. The instrument was then slowly withdrawn as the colon was fully examined. COLON FINDINGS: Surgical changes in rectum diverticulosis sigmoid, descending. Retroflexed views revealed internal hemorrhoids and Retroflexed views revealed small internal hemorrhoids The scope was then completely withdrawn from the patient and the procedure terminated. PROCEDURE WITHDRAWAL TIME:9minutes ADVERSE EVENTS: There were no complications. IMPRESSIONS: 1. Surgical changes in rectum diverticulosis sigmoid, descending 2. Retroflexed views revealed internal hemorrhoids 3. Retroflexed views revealed small internal hemorrhoids 4. Revealed external hemorrhoids RECOMMENDATIONS: 1. Benefiber 2 tsp daily 2. Probiotics from any C or health food store 3. Yearly rectal exams 4. High fiber diet RECALL: Return 5 years Colonoscopy Madison Banda MD eSigned: Madison Banda MD 11/20/2016 9:37 AM cc: PATIENT NAME: Chikis Jacinto MR#: [id number]
[2016-11-20 09:39] VITALS: BP 119/58; PULSE 60; RESP 18; O2SAT 98
--- NOTE | 2016-11-20 09:40 | GIPROC ---
[facility] [address] [facility]. [facility], [address] EGD PROCEDURE REPORT EXAM DATE: 11/20/2016 PATIENT NAME: Chikis Jacinto MR #: [id number] BIRTHDATE: 1940 ATTENDING: Madison Banda MD ORDER #: [id number] SUPERVISOR RIVETING: Rommel Granado and Slade Woo STATUS: inpatient INDICATIONS: The patient is a 76 yr old female here for an EGD due to gi bleeding PROCEDURE PERFORMED: EGD w/ biopsy MEDICATIONS: None and Per Anesthesia. TOPICAL ANESTHETIC: none CONSENT: The patient understands the risks and benefits of the procedure and understands that these risks include, but are not limited to: sedation, allergic reaction, infection, perforation and/or bleeding. Alternative means of evaluation and treatment include, among others: physical exam, x-rays, and/or surgical intervention. The patient elects to proceed with this endoscopic procedure. medical equipment was checked for proper function. Hand hygiene and appropriate measures for infection prevention was taken. After the risks, benefits and alternatives of the procedure were thoroughly explained, Informed consent was verified, confirmed and timeout was successfully executed by the treatment team. The patient was anesthetized with topical anesthesia and the EC-[id number] (Pedi C) and [id number] endoscope was introduced through the mouth and advanced to the second portion of the duodenum. Retroflexed views revealed a hiatal hernia The gastroscope was then slowly withdrawn and removed. Gastritis antrum-biopsy bile in stomach gastric body polyp-biopsy esophagitis distal esophagus -biopsy. ADVERSE EVENTS: There were no complications. IMPRESSIONS: 1. Gastritis antrum-biopsy bile in stomach gastric body polyp-biopsy esophagitis distal esophagus -biopsy 2. Retroflexed views revealed a hiatal hernia RECOMMENDATIONS: 1. Await biopsy results. Biopsy results will not be ready for 7-10 days. If you don't hear from us in two weeks, call our office for biopsy results. 2. Anti-reflux regimen 3. Continue PPI 4. Avoid NSAIDS 5. Ok to ar home from gi point PATIENT CONDITION: stable DISPOSITION: Inpatient REPEAT EXAM: EGD pending biopsy results Madison Banda MD eSigned: Madison Banda MD 11/20/2016 9:40 AM cc: PATIENT NAME: Chikis Jacinto MR#: [id number]
[2016-11-20] MEDS: DILTIAZEM-CD 180 MG CAP ER PO SCH (10:32)
[2016-11-20] MEDS: DULoxetine HCl DR 30 MG CAP PO SCH (10:32)
[2016-11-20] MEDS: LOSARTAN 50 MG TAB PO SCH (10:32)
[2016-11-20] MEDS: PANTOPRAZOLE SODIUM 40 MG VIAL IV SCH (10:33)
[2016-11-20] MEDS: SODIUM CHLOR 0.9% 1000 ML INJ 1,000 ML IV SCH (10:34)
--- NOTE | 2016-11-20 11:25 | HHI.PR ---
Subjective Remarks Follow up for GI bleeding. The patient reports no further rectal bleeding overnight, had multiple BMs with bowel prep. Denies any abdominal pain, nausea, or vomiting. The patient is seen s/p EGD/colonoscopy which showed gastritis, esophagitis, internal and external hemorrhoids. She has been able to tolerate oral intake after procedure. She has no other medical complaints at this time. GI has cleared the patient for discharge. She wants to go home. Objective Vitals Vital Signs Date Time Temp Pulse Resp B/P Pulse Ox O2 Delivery O2 Flow Rate FiO2 11/20/16 09:39 60 18 119/58 98 11/20/16 09:33 56 18 113/62 97 11/20/16 09:26 97.7 60 18 103/55 97 11/20/16 08:15 98.0 90 19 132/80 93 11/20/16 03:24 98.0 90 19 132/80 93 11/19/16 23:58 98.0 59 19 173/80 94 11/19/16 20:22 14 11/19/16 19:21 98.2 60 19 163/78 94 11/19/16 15:43 98.0 61 20 138/69 92 11/19/16 11:56 97.8 78 20 152/88 93 I/O 11/19/16 11/19/16 11/19/16 11/20/16 11/20/16 11/20/16 07:00 15:00 23:00 07:00 15:00 23:00 Intake Total 900 ml Balance 900 ml Intake Other 900 ml # Voids 1 Result Diagram: 11/20/16 0719 11/20/16 0719 Imaging Last Impressions Chest X-Ray 11/18/16 0000 Signed Impressions: Service Date/Time: Friday, November 18, 2016 14:54 - CONCLUSION: 1. Mild cardiomegaly. 2. No acute focal pulmonary infiltrate or pulmonary vascular congestion. 3. Calcified granuloma within the left lung base. 4. Degenerative changes and scoliosis of the thoracolumbar spine. Quinten Bocanegra MD Abdomen/Pelvis CT 11/18/16 0000 Signed Impressions: Service Date/Time: Friday, November 18, 2016 16:15 - CONCLUSION: 1. There is a periumbilical and probable lower abdominal incisional hernia, both of which contain a single loop of nondilated bowel. No bowel obstruction. 2. Hepatic fatty infiltration. Patient is status post cholecystectomy Slava Shah MD Objective Remarks GENERAL: Well-developed, well-nourished pleasant female patient in NAD. SKIN: Warm and dry. HEENT: Atraumatic. Normocephalic. Pupils equal and round. No scleral icterus. No injection or drainage. Mucous membranes pink and moist. NECK: Trachea midline. CARDIOVASCULAR: Regular rate and rhythm. No murmur appreciated. RESPIRATORY: No accessory muscle use. Clear to auscultation. Breath sounds equal bilaterally. GASTROINTESTINAL: Abdomen soft, non-tender, nondistended. Normoactive bowel sounds x4. MUSCULOSKELETAL: Extremities without clubbing, cyanosis, or edema. No obvious deformities. NEUROLOGICAL: Awake and alert. No obvious cranial nerve deficits. Motor grossly within normal limits. Normal speech. PSYCHIATRIC: Appropriate mood and affect; insight and judgment normal. Procedures 11/20/16 - EGD/colonoscopy showed gastritis, esophagitis, internal and external hemorrhoids. Medications and IVs Current Medications Medications (Trade) Dose Ordered Sig/Chan Route Start Time Stop Time Status Last Admin (NS Flush) 2 ml UNSCH PRN IVF 11/18/16 13:15 (NS Flush) 2 ml BID IV FLUSH 11/18/16 21:00 11/19/16 09:00 (Zofran Inj) 4 mg Q6H PRN IV 11/18/16 17:15 (Protonix Inj) 40 mg DAILY IV 11/19/16 09:00 11/20/16 10:33 (Cardizem Cd) 180 mg DAILY PO 11/19/16 09:00 11/20/16 10:32 (Cymbalta Dr) 30 mg DAILY PO 11/19/16 09:00 11/20/16 10:32 (Cozaar) 100 mg DAILY PO 11/19/16 09:00 11/20/16 10:32 (Tylenol) 650 mg Q6H PRN PO 11/18/16 18:15 (Percocet 5-325 Mg) 1 tab Q6H PRN PO 11/18/16 18:15 (Percocet 10-325 Mg) 1 tab Q6H PRN PO 11/18/16 18:15 11/20/16 03:33 Morphine Sulfate 2 mg 2 mg Q4H PRN IV 11/18/16 18:15 (NS 1000 ml Inj) 1,000 ml @ 84 mls/hr [id number] IV 11/19/16 08:45 11/20/16 10:34 A/P Problem List: (1) GI bleed ICD Code: K92.2 Status: Acute (2) Anticoagulated on Coumadin ICD Code: Z51.81 Status: Acute Assessment and Plan 76-year-old female with history of atrial fibrillation on Coumadin, COPD, chronic back pain, hypertension, GERD, presents with a 3 day history of bright red rectal bleeding since Wednesday11/15/16. GI Bleeding/Hematochezia: last dose of Coumadin 11/15, INR 1.3. CT abd/pelvis images reviewed by me, shows periumbilical and probable lower abdominal incisional hernia which contain single loop of nondilated bowel; no bowel obstruction, hepatic fatty infiltration. Hgb currently stable at 11.7. -Hold patient's Coumadin -Continue to monitor serial H&H q6h -Monitor Is&Os -Started IV Protonix, gentle IVF -Consult gastroenterology -11/20/16 - EGD/colonoscopy showed gastritis, esophagitis, internal and external hemorrhoids. -no further episodes of bleeding -advanced diet, patient tolerated well, GI cleared for discharge Atrial Fibrillation: Chronic, rate controlled -Coumadin on hold, INR 1.2 -EKG reviewed by me, shows NSR -Continue patient's Cardizem -Cleared by GI to restart patient Coumadin after discharge Hypertension: chronic -continue patient's Cozaar Chronic Back Pain: -continue patient's Percocet COPD: chronic, not in exacerbation -duonebs prn DVT Prophylaxis: teds/SCDs, avoid chemical prophylaxis with GI bleeding Written by Radha Gold, acting as scribe for Dr. Alicia on 11/20/16 at 11:25. All or portions of this note were transcribed by scribe Radha Gold. I, Dr. Jennifer Alicia personally performed the history, physical exam, and medical decision making; and confirmed the accuracy of the information in the transcribed note. Authenticated by Dr. Jennifre Alicia on 11/20/16 at 11:25. Discharge Planning Discharge patient to home Condition on discharge: Improved Heart Healthy Diet as tolerated Ad Dyana activity Rx written: Protonix, Benefiber Follow-up with primary care physician and gastroenterology Problem Qualifiers (1) GI bleed: Qualified Code: K92.2 - Gastrointestinal hemorrhage, unspecified gastrointestinal hemorrhage type Radha Gold PA-C Nov 20, 2016 11:25 Jennifer Alicia MD Nov 20, 2016 18:28
[2016-11-20] MEDS ORDERED: PROT40TA PO (12:33)
[2016-11-20] MEDS ORDERED: BENETAB PO (12:33)
--- NOTE | 2016-11-20 12:34 | HHI.DCPOC ---
Discharge Care Plan Diagnosis: (1) GI bleed (2) Gastritis (3) Esophagitis (4) Internal and external hemorrhoids without complication (5) Anticoagulated on Coumadin Goals to Promote Your Health * To prevent worsening of your condition and complications * To maintain your health at the optimal level Directions to Meet Your Goals Take your medications as prescribed Follow your dietary instruction Follow activity as directed Keep your appointments as scheduled Take your immunizations and boosters as scheduled If your symptoms worsen call your PCP, if no PCP go to Urgent Care Center or Emergency Room Smoking is Dangerous to Your Health. Avoid second hand smoke Call the 24-hour hour crisis hotline for domestic abuse at Radha Gold PA-C Nov 20, 2016 12:34 Jennifer Alicia MD Nov 20, 2016 18:28
== END 2016-11-20 14:13 | disposition home or self-care (01) ==
LOC: NEPE 12:47 → NEDA 17:12 → NEDH 21:21 → NEPGCP 21:54
PROVIDERS: ADMIT Hospitalist; ATTEND Hospitalist
DX: K92.1 Melena (principal); K64.4 Residual hemorrhoidal skin tags; K64.8 Other hemorrhoids; K57.30 Diverticulosis of large intestine without perforation or abscess without bleeding; K29.50 Unspecified chronic gastritis without bleeding; K31.7 Polyp of stomach and duodenum; K20.9 Esophagitis, unspecified; K44.9 Diaphragmatic hernia without obstruction or gangrene; J44.9 Chronic obstructive pulmonary disease, unspecified; I48.2 Chronic atrial fibrillation; K21.9 Gastro-esophageal reflux disease without esophagitis; G89.29 Other chronic pain; M54.9 Dorsalgia, unspecified; I10 Essential (primary) hypertension; K59.09 Other constipation; Z85.3 Personal history of malignant neoplasm of breast; Z79.01 Long term (current) use of anticoagulants; Z96.653 Presence of artificial knee joint, bilateral; Z88.0 Allergy status to penicillin; Z88.8 Allergy status to other drugs, medicaments and biological substances; Z91.048 Other nonmedicinal substance allergy status; Z87.891 Personal history of nicotine dependence
CPT/HCPCS: 71010; 74177; 80048; 80053; 81001; 85014; 85018; 85025; 85610; 85730; 86850; 86900; 86901; 88305; 88312; 93005; 96360; C9113; G0378; J7030; Q9967